=== PATIENT | male | born 1985 | race African-American/Black ===

== ENCOUNTER 2020-07-09 09:29 | Emergency (ER) | payer SELFPAY ==
[~2020-07-09] VITALS: Ht 180.3 cm; Wt 72.6 kg
[~2020-07-09 09:29] MED LIST: NKHM; TRAMADOL HCL50 MG PO; VIBRAMYCIN100 MG PO
[2020-07-09 11:24] LABS: BILIRUBIN Negative (Negative); BLOOD Negative (Negative); CLARITY Clear (Clear); COLOR Yellow (Yellow); GLUCOSE Negative (Negative); KETONE Negative (Negative); LEUKO ESTERASE Negative (Negative); NITRITE Negative (Negative); PH 6.5 (4.5-8.0); SPECIFIC GRAVITY 1.025 (1.001-1.030)
[2020-07-09 11:39] LABS: MUCOUS TRACE; RBC 0-2 rbc/hpf (0-2)
== END 2020-07-09 12:10 | disposition left against medical advice (07) ==
LOC: ED 09:29
PROVIDERS: Emergency Medicine
DX: Z04.89 Encounter for examination and observation for other specified reasons (principal); Z53.21 Procedure and treatment not carried out due to patient leaving prior to being seen by health care provider